=== PATIENT | female | born 1955 | race Caucasian/White ===

== ENCOUNTER → 2017-03-24 | Outpatient (CLI) | payer BC ==
[~2017-03-24] MED LIST: BUDESUS NAE; CETI10TA84 PO; CRAN1CAP15 PO; DEXL60CA4 PO; DEXT30TA7 PO; FAMO40TA6 PO; LACT10CA3 PO; LEVAAER2 INH; LORA-741 PO; MOME100A INH; MULT-190 PO; SNG10 PO; TRIA75TA53 PO
--- NOTE | 2017-03-24 15:12 | MAMMOGRAPHY REPORT ---
BILATERAL DIGITAL DIAGNOSTIC MAMMOGRAM TOMOSYNTHESIS WITH CAD AND TARGETED LEFT ULTRASOUND: 03/24/2017 CLINICAL HISTORY: New palpable soft mobile lump in the lower inner quadrant of the left breast. Also due for annual bilateral screening mammograms. TECHNIQUE: Bilateral breast tomosynthesis in addition to standard 2D mammography was performed. Curre nt study was also evaluated with a Computer Aided Detection (CAD) system. COMPARISON: Comparison is made to exams dated: 03/20/2016 ultrasound, 03/20/2016 mammogram, 03/13/2016 m ammogram, 03/08/2015 ultrasound, 03/08/2015 mammogram, and 05/11/2014 mammogram - [facility]. BREAST COMPOSITION: The tissue of both breasts is heterogeneously dense, which may obscure small mas ses. FINDINGS: A triangular skin palpable marker overlies the lower inner quadrant of the left breast, den oting the new lump pointed out by the patient. A linear scar marker overlies the upper outer quadrant of the left breast. No new suspicious mass, architectural distortion or cluster of microcalcificatio ns is seen bilaterally. There are diffuse bilateral benign-appearing microcalcifications. Targeted ultrasound was performed in the area of palpable lump pointed out by the patient (8:00 left breast, 6 cm from the nipple). There is a prominent superficial fat lobule in this location measurin g 2.6 x 0.8 x 1.9 cm. This could simply represent a prominent fat lobule or possibly a benign lipoma . There is no evidence of a suspicious solid mass on ultrasound. IMPRESSION: ACR BI-RADS CATEGORY 2: BENIGN, TARGETED ULTRASOUND ACR BI-RADS CATEGORY 2: BENIGN 1. There is no new suspicious mammographic abnormality in the area of palpable concern. On ultrasou nd, there is a prominent fat lobule versus possible benign lipoma in the 8:00 left breast, 6 cm from the nipple, in the area of soft mobile lump pointed out by the patient. The imaging findings are rachel ign, but continued clinical monitoring is recommended, as biopsy of a clinically suspicious mass shou ld not be precluded by negative imaging. 2. Otherwise, recommend routine mammography in one year. Approximately 10% of breast cancers are not detected with mammography. A negative mammographic report should not delay biopsy if a clinically suggestive mass is present. Malinda Jones M.D. ay/:03/24/2017 15:03:32 Equities Trader: Zoila Smallwood, [facility] letter sent: Normal /2 BI-RADS Code: ACR BI-RADS Category 2: Benign Ultrasound BI-RADS: ACR BI-RADS Category 2: Benign
== END | disposition home or self-care (01) ==
LOC: C.MAMM 10:28
PROVIDERS: ATTEND Obstetrics & Gynecology
DX: Z12.31 Encounter for screening mammogram for malignant neoplasm of breast (principal); N63 Unspecified lump in breast

== ENCOUNTER → 2017-08-28 | Outpatient (CLI) | payer BC ==
[2017-08-28 12:41] LABS: BASO % 0.2 %; BASO ABS # 0.01 K/uL (0-0.2); COMPLETE YES; EOS % 0.7 %; HEMATOCRIT 44.2 % (37-47); IG% 0.2 %; LYMPH % 21.8 %; LYMPH ABS # 1.22 K/uL (1.2-3.4); MEAN CELL VOLUME 92.5 fL (80-100); MEAN CORPUSCULAR HEMOGLOBIN 31.2 pg (25-34); MEAN CORPUSCULAR HGB CONC 33.7 g/dl (32-36); MEAN PLATELET VOLUME 10.1 fL (7.4-10.4); MONO % 11.1 %; PLATELET COUNT 383 K/uL (130-400); RED BLOOD COUNT 4.78 M/uL (4.2-5.4)
[2017-08-28 13:10] LABS: ALKALINE PHOSPHATASE 74 U/L (45-117); ALT/SGPT 24 U/L (12-78); AST/SGOT 12 U/L (15-37); BLOOD UREA NITROGEN 18 mg/dl (7-18); BUN/CREATININE RATIO 17.8 (10-20); CALCIUM 9.1 mg/dl (8.5-10.1); CARBON DIOXIDE 31 mmol/L (21-32); CHLORIDE 101 mmol/L (98-107); GLUCOSE 94 mg/dl (70-99); POTASSIUM 3.5 mmol/L (3.5-5.1); SODIUM 138 mmol/L (136-145)
[2017-08-28 13:22] LABS: CHOLESTEROL 219 mg/dl (0-200); CHOLESTEROL/HDL RATIO 3.5; HDL CHOLESTEROL 63 mg/dl; LDL CHOLESTEROL CALCULATED 128 mg/dl; TRIGLYCERIDES 141 mg/dl (0-150); VERY LOW DENSITY LIPOPROT CALC 28 mg/dl
== END | disposition home or self-care (01) ==
LOC: C.LABPBG 08:47
PROVIDERS: ATTEND Internal Medicine
DX: I10 Essential (primary) hypertension (principal); J45.909 Unspecified asthma, uncomplicated; E78.5 Hyperlipidemia, unspecified; J32.9 Chronic sinusitis, unspecified; K21.9 Gastro-esophageal reflux disease without esophagitis

== ENCOUNTER → 2018-04-14 | Outpatient (CLI) | payer BC | END | disposition home or self-care (01) | LOC: C.LABSPEC 09:52 | PROVIDERS: ATTEND Physician Assistant | DX: R39.9 Unspecified symptoms and signs involving the genitourinary system (principal) ==

== ENCOUNTER 2021-11-25 10:48 | Observation (INO) ==
[2021-11-25] MEDS ORDERED: OXYMETAZOLINE 0.05% 30 ML BTL ONE ×2 (10:52→15:47)
--- NOTE | 2021-11-25 12:28 | Emergency Department Note ---
History of Present Illness General Chief complaint: Nose Bleed (Minor) Stated complaint: NOSE BLEED Time Seen by Provider: 11/25/21 10:56 History of Present Illness This 65-year-old female presents to the ED, for evaluation of a nosebleed that developed this morning. Patient has a history of nosebleeds requiring cautery. She was last seen by Dr. Mcintyre 10 days ago and had a left posterior nosebleed cauterized in the OR. She did have some packing at that time. She states she has been using moisturizing gel, saline mist, and Bactroban ointment to keep the area moisturized. She was doing fine until this morning. Patient states she blew her nose around 8:30 AM and developed nosebleed. She could not control it at home. She now reports for further management. She is on Xarelto. She states she never had nosebleeds in her life until she started the Xarelto. She denies any trauma. No other complaints. Home Medications Medication Instructions Recorded Confirmed Type cetirizine 10 mg tablet (Zyrtec) 10 mg PO HS 01/20/19 11/25/21 History guaifenesin 600 mg tablet, 600 mg PO Q6H PRN 04/01/19 11/25/21 History extended release 12 hr (Mucinex) multivitamin (Multiple Vitamins) 1 tab PO DAILY 04/01/19 11/25/21 History esomeprazole magnesium 20 mg 40 mg PO BID cap 04/12/19 11/25/21 History capsule,delayed release (Nexium) clobetasol 0.05 % topical ointment 1 applic TOPICAL 3XWK #30 g 12/04/20 11/25/21 Rx levalbuterol tartrate 45 2 inh INHALATION Q4H PRN #15 gm 01/16/21 11/25/21 Rx mcg/actuation aerosol inhaler (Xopenex HFA) calcium carbonate 300 mg (750 mg) 300 mg PO BID PRN 02/07/21 11/25/21 History chewable tablet (Tums) cholecalciferol (vitamin D3) 50 50 mcg PO QAM 02/07/21 11/25/21 History mcg (2,000 unit) capsule famotidine 40 mg tablet 40 mg PO BID #180 tab 03/05/21 11/25/21 Rx potassium chloride 10 mEq 10 meq PO BID #180 tab 03/20/21 11/25/21 Rx tablet,extended release (Klor-Con) budesonide-formoterol HFA 160 2 puff INHALATION BID #1 inhaler 06/15/21 11/25/21 Rx mcg-4.5 mcg/actuation aerosol inhaler (Symbicort) inhaler,assist devices,access #1 ea 06/15/21 11/23/21 Rx montelukast 10 mg tablet 10 mg PO HS #90 tab 08/21/21 11/25/21 Rx diltiazem HCl 180 mg capsule,24 180 mg PO QAM 11/12/21 11/25/21 History hr,extended release ascorbic acid (vitamin C) 500 mg 500 mg PO DAILY 11/25/21 11/25/21 History tablet budesonide-formoterol HFA 160 2 puff INHALATION BID 11/25/21 11/25/21 History mcg-4.5 mcg/actuation aerosol inhaler hydroxyzine HCl 25 mg tablet 25 mg PO DAILY PRN 11/25/21 11/25/21 History lutein 25 mg-zeaxanthin 5 mg 1 cap PO DAILY 11/25/21 11/25/21 History capsule (Ocuvite Lutein) tiotropium bromide 18 mcg capsule 1 cap INHALATION DAILY 11/25/21 11/25/21 History with inhalation device (Spiriva with HandiHaler) triamterene 75 0.5 tab PO QAM 11/25/21 11/25/21 History mg-hydrochlorothiazide 50 mg tablet zinc 50 mg tablet 50 mg PO DAILY 11/25/21 11/25/21 History ferrous sulfate 325 mg (65 mg 325 mg PO QAM 30 Days #30 tab 11/26/21 Rx iron) tablet,delayed release Allergies Allergy/AdvReac Type Severity Reaction Status Date / Time Penicillins Allergy Mild Hives Verified 11/25/21 13:52 Cephalosporins AdvReac Intermediate Nausea Verified 11/25/21 13:52 Sulfa (Sulfonamide AdvReac Unknown Nausea Verified 11/25/21 13:52 Antibiotics) Past Med/Surg History Medical History Allergic rhinitis Anxiety Asthma Atrial fibrillation dx'd January 2021, following with Dr Prescott. no cardioversion. patient scheduled to have a LOOP recorder inserted 02/08/21 to be done at [facility]. BCC (basal cell carcinoma) Chronic anticoagulation Chronic GERD Chronic sinusitis Cleft palate hx and surgical repair Colon polyp GERD (gastroesophageal reflux disease) HTN (hypertension) Hyperlipidemia Hypokalemia Insomnia Lichen sclerosus et atrophicus Nasal bleeding was seen in ER [place] on 11/11 has packing in nose. no current bleeding Osteopenia after menopause Surgical History H/O esophagogastroduodenoscopy (10/05/10) Cough w/u. Mild chronic inflammation. No evidence of intestinal metaplasia. H/O sinus surgery H/O tubal ligation History of colonoscopy (01/19/16) Mucosal Schwann cell hamartoma (benign) History of diagnostic tests Cough w/u 2010. Esophageal manometry 11/15/10 was non-diagnostic. 24 hour pH testing 11/15/10 DeMeester score 34.3, remarkable reflux, total of 101 refluxes, 49 in upright position, 52 in supine. History of lumpectomy of left breast right breast History of surgical removal of skin lesion S/P reconstruction procedure Palatoplasty for Cleft palate Family History Father Diabetes Alzheimer disease Hypertension Heart disease Mother Allergic rhinitis Asthma Hearing loss Environmental allergies Family/Other Diabetes Heart disease Cancer Stroke Brother Colon cancer Grandfather (Paternal) Colon cancer Other Family history non-contributory No family history of bleeding disorder Denies family history of Ovarian cancer Prostate cancer Myocardial infarction Breast cancer Social History Smoking Status: Never smoker Second Hand Exposure: No; Hx Alcohol Use: No Hx Substance Use: No Preferred Language: Greenlandic Communication Ability: Effective Visual Impairment: No Limitations Hearing Ability: Normal Bicycle Repairman Required: No Beliefs That Will Affect Care: None marital status: Current Living Situation: Spouse current occupational status: retired Feels Safe at Home: Yes Childhood Exposure to Second-Hand Smoke: No Diet Comment: regular caffeine: Yes during the past year weight has: remained stable Dental Care, Regularly: Yes Physical Activity Frequency: Daily Physical Activity Frequency Comment: walk Seatbelt Use: always Sunscreen Use: No Assistive Devices: None Review of Systems A total of 10 systems reviewed and were otherwise negative Physical Exam Vital Signs Vital Signs - 24 hr 11/25/21 10:57 11/25/21 11:21 Pulse Rate 105 H Pulse Rate [Left Finger] 102 H Respiratory Rate 18 18 Blood Pressure 167/94 H Blood Pressure [Left Arm] 136/81 Blood Pressure Mean 118 Blood Pressure Mean [Left Arm] 99 Pulse Oximetry 97 95 Oxygen Delivery Method Room Air Room Air Sepsis Recent Fever Within 48 Hours No Sepsis New/Unexplained Change in Mental Status No Sepsis Action Taken by Nursing No Action Required General: Well-developed, well-nourished, elderly white female, in no acute distress. Sitting on the bed. Alert and oriented. Conversive. Currently has a nasal clip in place with continued bleeding. Skin: Warm dry with fair turgor. No rashes or lesions. No ecchymosis or erythema. HEENT: Normocephalic, atraumatic. Eyes PERRLA EOMI. Nares currently has bleeding from the left nostril. She did have some oozing from the right, but after clearing the area with gauze and suction, she had no bleeding occurring on the right. All of her bleeding is on the left. There is some oozing present along the posterior septum. Large clot is present. She does have blood draining on the posterior oropharynx. Uvula midline, oral mucosa moist. Hard palate is slightly misshapen due to previous cleft surgery. Heart RRR. No MGR. Lungs clear to auscultation bilaterally. No crackles rhonchi or wheezing. Good air movement. Course Administered Medications Discontinued Medications Ascorbic Acid (Ascorbic Acid 500 Mg Tab) 500 mg PO DAILY SAAD Stop: 12/26/21 08:59 Last Admin: 11/26/21 09:31 Dose: 500 mg Documented by: [id number] Cetirizine HCl (Cetirizine Hcl 10 Mg Tablet) 10 mg PO HS SAAD Stop: 12/25/21 20:59 Last Admin: 11/25/21 20:59 Dose: 10 mg Documented by: [id number] Diltiazem HCl (Diltiazem Er 180 Mg Capcr) 180 mg PO QAM SAAD Stop: 12/26/21 08:59 Last Admin: 11/26/21 09:31 Dose: 180 mg Documented by: [id number] Famotidine (Famotidine 40 Mg Tablet) 40 mg PO BID [facility] Stop: 12/25/21 20:59 Last Admin: 11/26/21 09:31 Dose: 40 mg Documented by: [id number] Admin: 11/25/21 20:59 Dose: 40 mg Documented by: [id number] Ferrous Sulfate (Ferrous Sulfate 325 Mg Tab) 325 mg PO QAM [facility] Stop: 12/26/21 08:59 Last Admin: 11/26/21 09:31 Dose: 325 mg Documented by: [id number] Fluticasone/Vilanterol (Fluticasone/Vilanterol 200/25mcg 14 Puffs/Inhaler) 1 puffs INH DAILY SAAD Stop: 12/26/21 08:59 Last Admin: 11/26/21 09:31 Dose: 1 puffs Documented by: [id number] Gelatin (Gelatin Sponge Sz 100) Confirm Administered Dose 1 ea .ROUTE .STK-MED ONE Stop: 11/25/21 15:17 Last Admin: 11/25/21 16:25 Dose: 1 ea Documented by: [id number] Sodium Chloride (Nss 1000ml) 1,000 mls @ 75 mls/hr IV .[id number] [facility] Stop: 12/25/21 19:29 Last Admin: 11/26/21 09:18 Dose: Not Given Documented by: [id number] Infusion: 11/26/21 09:18 Dose: 0 mls/hr Documented by: [id number] Admin: 11/25/21 20:56 Dose: 75 mls/hr Documented by: [id number] Miscellaneous ( Floseal Hemostatic Matrix 5ml) 5 ml TOP ONCE ONE Stop: 11/25/21 16:16 Last Admin: 11/25/21 16:32 Dose: 5 ml Documented by: [id number] Miscellaneous (Hemaderm Ent Applicator Kit) 1 ea TOP ONCE ONE Stop: 11/25/21 16:24 Last Admin: 11/25/21 16:25 Dose: 1 ea Documented by: [id number] Miscellaneous (Surgicel Fibrillar Hemostat 1 X 2in) 1 ea TOP ONCE ONE Stop: 11/25/21 16:24 Last Admin: 11/25/21 16:33 Dose: 1 ea Documented by: [id number] Montelukast Sodium (Montelukast Sodium 10 Mg Tablet) 10 mg PO HS [facility] Stop: 12/25/21 20:59 Last Admin: 11/25/21 21:00 Dose: 10 mg Documented by: [id number] Multivitamins (Multivitamin Tab) 1 tab PO DAILY [facility]; Protocol Stop: 12/26/21 08:59 Last Admin: 11/26/21 09:31 Dose: Not Given Documented by: [id number] Multivitamins/Minerals (Cerovite Adv Formula Tab) 1 tab PO DAILY [facility] Stop: 12/26/21 08:59 Last Admin: 11/26/21 09:30 Dose: 1 tab Documented by: [id number] Mupirocin (Mupirocin 2% Oint 22 Gm Tube) Confirm Administered Dose 66 appln .ROUTE .STK-MED ONE Stop: 11/25/21 16:31 Last Admin: 11/25/21 16:33 Dose: 66 appln Documented by: [id number] Oxymetazoline HCl (Oxymetazoline 0.05% 30 Ml Btl) Confirm Administered Dose 150 sprays .ROUTE .STK-MED ONE Stop: 11/25/21 10:53 Last Admin: 11/25/21 10:58 Dose: 150 sprays Documented by: [id number] Oxymetazoline HCl (Oxymetazoline 0.05% 30 Ml Btl) Confirm Administered Dose 150 sprays .ROUTE .STK-MED ONE Stop: 11/25/21 15:48 Last Admin: 11/25/21 16:25 Dose: 150 sprays Documented by: [id number] Pantoprazole Sodium (Pantoprazole 40 Mg Tab) 40 mg PO BID [facility]; Protocol Stop: 12/25/21 20:59 Last Admin: 11/26/21 09:30 Dose: 40 mg Documented by: [id number] Admin: 11/25/21 21:05 Dose: 40 mg Documented by: [id number] Potassium Chloride (Potassium Chloride 10 Meq Tabcr) 10 meq PO BID SAAD Stop: 12/25/21 20:59 Last Admin: 11/26/21 09:28 Dose: 10 meq Documented by: [id number] Admin: 11/25/21 21:05 Dose: 10 meq Documented by: [id number] Triamterene/Hydrochlorothiazide (Triamterene/Hctz 37.5/25mg Tab) 0.5 tab PO QAM [facility] Stop: 12/26/21 08:59 Last Admin: 11/26/21 09:29 Dose: 0.5 tab Documented by: [id number] Umeclidinium [place] (Umeclidinium [place] 62.5mcg/Blister 7 Puffs/Inhaler) 1 puffs INH DAILY SAAD; Protocol Stop: 12/26/21 08:59 Last Admin: 11/26/21 09:42 Dose: Not Given Documented by: [id number] Vitamin D (Cholecalciferol 1,000 Units 25 Mcg Tab) 2,000 units PO QAM SAAD Stop: 12/26/21 08:59 Last Admin: 11/26/21 09:31 Dose: 2,000 units Documented by: [id number] Medical Decision Making Differential Diagnosis Anterior epistaxis, posterior epistaxis, nasal fracture Medical Records Attestation: I reviewed the patient's medical records. Home Medications Current Medication List: was personally reviewed by me Laboratory Data Attestation: I reviewed the patient's lab results. CBC obtained today shows an H&H of 14.0 and 40.9. Covid test is negative. Result diagrams: 11/26/21 07:45 Lab Results 11/25/21 11/25/21 Range/Units 12:48 12:48 WBC 12.15 H (4.8-10.8) K/uL RBC 4.52 (4.2-5.4) M/uL Hgb 14.0 (12.0-16.0) g/dL Hct 40.9 (37-47) % MCV 90.5 (80-100) fL MCH 31.0 (25-34) pg MCHC 34.2 (32-36) g/dL RDW Std Deviation 42.6 (36.4-46.3) fL RDW Coeff of Niharika 12.8 (11.5-14.5) % Plt Count 441 H (130-400) K/uL MPV 9.1 (7.4-10.4) fL Immature Gran % (Auto) 0.3 % Neut % (Auto) 81.4 % Lymph % (Auto) 11.2 % [place] % (Auto) 6.3 % Eos % (Auto) 0.7 % Baso % (Auto) 0.1 % Neut # (Auto) 9.89 H (1.4-6.5) K/uL Lymph # (Auto) 1.36 (1.2-3.4) K/uL [place] # (Auto) 0.77 H (0.11-0.59) K/uL Eos # (Auto) 0.08 (0-0.5) K/uL Baso # (Auto) 0.01 (0-0.2) K/uL Immature Gran # (Auto) 0.04 H (0.00-0.02) K/uL SARS-CoV-2, RNA, NAAT NEGATIVE (NEGATIVE) Blood Pressure Blood Pressure Findings: Elevated blood pressure Blood Pressure Disposition: elevated BP felt to be situational MDM Narrative Patient was evaluated in room C10. Conservative care measures were discussed. Afrin protocol with nasal clip was attempted initially. Bleeding did not stop. A second round was attempted after suction of the intranasal clot. Nasal clips were again applied. This did not stop her bleeding. Patient did have several episodes of gagging, secondary to a posterior clot that bridged into the oropharynx. This was removed with suction. I did speak with Dr. Mcintyre regarding this patient. He was out of town and unavailable. He recommended contacting the on-call ENT. I did speak with Dr. Queen, who came to the ED to evaluate the patient. He recommended taking the patient to the OR for cauterization under anesthesia. Please see his dictation for final management. Patient did have an apple juice around 8:30 AM. She did not have breakfast. She remained n.p.o. while in the ED. Patient remained stable while in the ED. Patient was seen in conjunction with Dr. Winters, who also evaluated the patient, and concurred with today's diagnosis and treatment plan. Impression & Plan Epistaxis To the OR for nasal cautery Discharge Plan Visit Data Chief Complaint: Nose Bleed (Minor) Stated Complaint: NOSE BLEED ED Provider: López Winters ED Midlevel Provider: Salazar Cowart Discharge Problem: Epistaxis Patient Disposition: Admitted As Inpatient Condition: Good Discharge Instructions Interventions: ED Discharge Assessment Last Done: 11/25/21 15:17
--- NOTE | 2021-11-25 12:30 | History & Physical Report ---
Date of Service November 25, 2021 Assessment & Plan (1) Epistaxis: Plan: This is a posterior nasal bleeding that is currently not controlled. 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 Additionally with the past cauterizations she has friable tissue. Patient is also anticoagulated on Xarelto for her atrial fibrillation. 1. IV Fluid Access 2. CBC Type and Cross-Match 3. CONTROL of EPISTIAXIS - This will require endoscopic nasal airway and nasopharyngeal evaluation and control of epistaxis. Admission and Anticipated Discharge Date Admission Date: November 25, 2021 Anticipated date of discharge: 11/26/21 History of Present Illness Chief Complaint: Recurrent Epistaxis Primary Care Provider: Solomon Salomon MD Patient had taken her usual medications this AM with about 4 oz. of Apple Juice and then in the course of the morning blew her nose and it started bleeding - with blood coming from both nostrils, but more significantly down the back of her throat. When th bleeding FAILED to STOP, the patient came to the [facility] for triage and treatment. The patient as given first the AFRIN protocol and that did NOT STOP the Epistaxis. Fibrullar hemostatic agent packing and nasal "clamping" did not control the bleeding. Otolaryngology - Head & Neck surgery evaluation and management then requested. The patient actually had a episode of epistaxis 2 weeks ago on November 11, 2021. She came to the [facility] then and was triaged and had an epistat balloon packing to control her bleeding, which appeared to be a posterior nasal bleed. She was discharged with the epistat balloon and cefdinir antibiotic therapy. She then saw a local ENT Dr. Mcintyre in follow-up after emergency room treatment. He remove the epistatic balloon and took her to surgery on November 15, 2021 for endoscopic procedure with control of epistaxis and cauterization. She was discharged from the surgery center November 15, 2021 with the nasal packing in place and to continue with her Xarelto and cefdinir antibiotic therapy. The patient was scheduled for follow-up on December 06, [address] MCINTYRE's office. An important past medical history is history of cleft palate as an infant and she has had 11 reconstructive surgeries - on her palate and nasal airway, since infancy until age 9. Allergies Allergy/AdvReac Type Severity Reaction Status Date / Time Penicillins Allergy Mild Hives Verified 11/23/21 11:01 Cephalosporins AdvReac Intermediate Nausea Verified 11/23/21 11:01 Sulfa (Sulfonamide AdvReac Unknown Nausea Verified 11/23/21 11:01 Antibiotics) Home Medications Medication Instructions Recorded Confirmed Type budesonide 32 mcg/actuation nasal 2 spray INTRANASAL DAILY 01/20/19 11/23/21 History spray (Rhinocort Allergy) cetirizine 10 mg tablet (Zyrtec) 10 mg PO HS 01/20/19 11/23/21 History guaifenesin 600 mg tablet, 600 mg PO Q6H PRN 04/01/19 11/23/21 History extended release 12 hr (Mucinex) multivitamin (Multiple Vitamins) 1 tab PO DAILY 04/01/19 11/23/21 History esomeprazole magnesium 20 mg 40 mg PO BID cap 04/12/19 11/23/21 History capsule,delayed release (Nexium) clobetasol 0.05 % topical ointment 1 applic TOPICAL 3XWK #30 g 12/04/20 11/23/21 Rx levalbuterol tartrate 45 2 inh INHALATION Q4H PRN #15 gm 01/16/21 11/23/21 Rx mcg/actuation aerosol inhaler (Xopenex HFA) calcium carbonate 300 mg (750 mg) 300 mg PO BID PRN 02/07/21 11/23/21 History chewable tablet (Tums) cholecalciferol (vitamin D3) 50 50 mcg PO QAM 02/07/21 11/23/21 History mcg (2,000 unit) capsule famotidine 40 mg tablet 40 mg PO BID #180 tab 03/05/21 11/23/21 Rx potassium chloride 10 mEq 10 meq PO BID #180 tab 03/20/21 11/23/21 Rx tablet,extended release (Klor-Con) mupirocin 2 % topical ointment 1 applic TOPICAL BID #22 g 04/23/21 11/23/21 Rx budesonide-formoterol HFA 160 2 puff INHALATION BID #1 inhaler 06/15/21 11/23/21 Rx mcg-4.5 mcg/actuation aerosol inhaler (Symbicort) inhaler,assist devices,access #1 ea 06/15/21 11/23/21 Rx ipratropium bromide 21 mcg (0.03 2 spray INTRANASAL BID ml 07/16/21 11/23/21 History %) nasal spray vit A 300 mcg-C 200 mg-E 27 1 tab PO QAM 07/16/21 11/23/21 History mg-lutein 2 mg and minerals tablet (Ocuvite with Lutein) triamterene 75 See Rx Instructions .ROUTE 07/31/21 11/23/21 Rx mg-hydrochlorothiazide 50 mg tablet .COMPLEX #45 tablet montelukast 10 mg tablet 10 mg PO HS #90 tab 08/21/21 11/23/21 Rx zinc 50 mg PO QAM 09/17/21 11/23/21 History hydroxyzine HCl 25 mg tablet See Rx Instructions .ROUTE 11/09/21 11/23/21 Rx .COMPLEX #30 tab cefdinir 300 mg capsule 300 mg PO BID #20 cap 11/12/21 11/23/21 Rx diltiazem HCl 180 mg capsule,24 180 mg PO QAM 11/12/21 11/23/21 History hr,extended release rivaroxaban 20 mg tablet (Xarelto) 20 mg PO QPM 11/12/21 11/23/21 History Past Med/Surg History Medical History Allergic rhinitis Anxiety Asthma Atrial fibrillation dx'd January 2021, following with Dr Prescott. no cardioversion. patient scheduled to have a LOOP recorder inserted 02/08/21 to be done at [facility]. BCC (basal cell carcinoma) Chronic anticoagulation Chronic GERD Chronic sinusitis Cleft palate hx and surgical repair Colon polyp GERD (gastroesophageal reflux disease) HTN (hypertension) Hyperlipidemia Hypokalemia Insomnia Lichen sclerosus et atrophicus Nasal bleeding was seen in ER [place] on 11/11 has packing in nose. no current bleeding Osteopenia after menopause Surgical History H/O esophagogastroduodenoscopy (10/05/10) Cough w/u. Mild chronic inflammation. No evidence of intestinal metaplasia. H/O sinus surgery H/O tubal ligation History of colonoscopy (01/19/16) Mucosal Schwann cell hamartoma (benign) History of diagnostic tests Cough w/u 2010. Esophageal manometry 11/15/10 was non-diagnostic. 24 hour pH testing 11/15/10 DeMeester score 34.3, remarkable reflux, total of 101 refluxes, 49 in upright position, 52 in supine. History of lumpectomy of left breast right breast History of surgical removal of skin lesion S/P reconstruction procedure Palatoplasty for Cleft palate Family History Father Diabetes Alzheimer disease Hypertension Heart disease Mother Allergic rhinitis Asthma Hearing loss Environmental allergies Family/Other Diabetes Heart disease Cancer Stroke Brother Colon cancer Grandfather (Paternal) Colon cancer Other Family history non-contributory No family history of bleeding disorder Denies family history of Ovarian cancer Prostate cancer Myocardial infarction Breast cancer Social History Smoking Status: Never smoker Second Hand Exposure: No; Hx Alcohol Use: No Hx Substance Use: No Preferred Language: Ugandan Communication Ability: Effective Visual Impairment: No Limitations Hearing Ability: Normal Analytics Developer Required: No Beliefs That Will Affect Care: None marital status: Current Living Situation: Spouse current occupational status: retired Feels Safe at Home: Yes Childhood Exposure to Second-Hand Smoke: No Diet Comment: regular caffeine: Yes during the past year weight has: remained stable Dental Care, Regularly: Yes Physical Activity Frequency: Daily Physical Activity Frequency Comment: walk Seatbelt Use: always Sunscreen Use: No Assistive Devices: Denture - Upper and Glasses Review of Systems Constitutional: no fever, no sweats, no weakness and no weight loss Started Xeralto 3 months ago for A-fib. Eyes: no diplopia, no eye pain, no tunnel vision and no problem reported Ear, Nose, Mouth, Throat: + nasal congestion, + nasal discharge (Blood from BOTH nostrils and POST-NASAL DRIP), + post nasal drip (fresh bleeding), + nasal obstruction, + epistaxis and + dental caps; no ear discharge, no nasal trauma, no facial pain and no sinus pain/pressure Respiratory: no cough, no hemoptysis and no wheezing Cardiovascular: no radiating jaw, neck or arm pain Gastrointestinal: + heartburn; no abdominal pain, no nausea, no vomiting, no hematemesis, no pain with swallowing and no dysphagia Genitourinary: no urinary frequency, no urinary incontinence, no hematuria and no pelvic pain Musculoskeletal: no back pain, no neck pain, no swelling and no limited range of motion Integumentary: no rash, no sores, no wounds and no unusual bruising Neurologic: no gait abnormality, no paralysis, no numbness, no paresthesia, no radiating pain and no syncope Psychiatric: + anxiety; no suicidal ideation and no paranoia Endocrine: no polydipsia, no polyphagia and no polyuria Hematologic / Lymphatic: + coagulopathy (XERALTO anti-coagulation therapy for A-fib); no lymphadenopathy Allergy / Immunological: + seasonal rhinorrhea and + cough; no tongue swelling Physical Exam Physical Exam: Emergency Dept. Consultation and Hospital Admission. Constitutional: Alert and oriented. Afebrile. ENMT: Ears: no EAC abnormality and no TM abnormality Nose: + turbinate abnormality (Past CLEFT PALATE / Nasal Abnormality), + septum abnormality (with deformed sepatl wall from past CLEFT Palate / Repars.) and + epistaxis (Bilateral and POSTERIOR. ) Mouth: + dentition abnormality (past CLEFT Palate repairwith missing anterior maxillary dentition / alveolu), + dental bridge and + dental restorations; no mouth trauma, motion of mouth not restricted and no thickened frenulum Throat: uvula midline (shortened and reconstructed due to past CLEFT Palate) and + postnasal drainage (blood) Neck: trachea midline, no thyromegaly normal visual inspection and trachea midline; no neck crepitus Respiratory: normal respiratory effort, lungs clear to auscultation normal respiratory effort; no respiratory distress, no labored breathing and no stridor Auscultation: lungs clear to auscultation bilaterally; no rales and no wheezes Cardiovascular: RRR, no murmur, no edema (HISTORY of ATRIAL FIBRILLATION ) Rate/Rhythm: regular rate (NO A-fib on tracing this AM) Extremities: no pedal edema and no edema Chest (Breasts): normal inspection/palpation of breasts Gastrointestinal (Abdomen): normal bowel sounds, soft, nontender, no hepatosplenomegaly Musculoskeletal: no cyanosis or clubbing, extremities motor strength 5/5 Skin: no rashes, warm and dry Neurologic: PERRL, EOMI, accommodation nl, no face palsy, no dysarthria Cranial Nerves: PERRL, tongue midline, normal gag reflex, able to elevate shoulders bilaterally and no nystagmus Psychiatric: A+Ox3, euthymic affect Results & Data Results & Data ([facility]) Vital Signs (Past 12 Hours) Vital Signs Pulse Pulse Resp BP BP Pulse Ox 11/25/21 11:21 102 H 18 136/81 95 11/25/21 10:57 105 H 18 167/94 H 97 Code Status & VTE Plan VTE Prophylaxis Plan Reason for no VTE drug order: Treatment not indicated (ACTIVE BLeeding AND on XERALTO)
[2021-11-25 13:01] LABS: Basophils # (auto) 0.01 K/uL (0-0.2); Basophils % (auto) 0.1 %; Eosinophils # (auto) 0.08 K/uL (0-0.5); Eosinophils % (auto) 0.7 %; Hematocrit (blood only) 40.9 % (37-47); Immature Granulocytes # (auto) 0.04 K/uL (0.00-0.02); Immature Granulocytes % (auto) 0.3 %; Lymphocytes # (auto) 1.36 K/uL (1.2-3.4); Lymphocytes % (auto) 11.2 %; Mean Corpuscular Hgb Conc 34.2 g/dL (32-36); Mean Corpuscular Volume 90.5 fL (80-100); Mean Platelet Volume 9.1 fL (7.4-10.4); Monocytes # (auto) 0.77 K/uL (0.11-0.59); Monocytes % (auto) 6.3 %; Neutrophils # (auto) 9.89 K/uL (1.4-6.5); Neutrophils % (auto) 81.4 %; Platelet Count 441 K/uL (130-400); RDW Coefficient of Variation 12.8 % (11.5-14.5); RDW Standard Deviation 42.6 fL (36.4-46.3); Red Blood Count 4.52 M/uL (4.2-5.4); White Blood Count 12.15 K/uL (4.8-10.8)
--- NOTE | 2021-11-25 13:30 | Emergency Department Note ---
ED Visit Note The patient was seen and examined with Salazar Cowart PA-C. I agree with the history, physical and findings. Please see the note for disposition and details. Patient has a significant history of epistaxis and nasal cautery. Recently treated by ENT [address] Mcintyre was consulted but he is out of town. I did evaluate the patient as she was gagging from a clot that was forming in the posterior nares. I did remove this via suction. There was a small area of bleeding noted from a superficial vessel in the posterior aspect of the anterior septum. I did apply Afrin and covered the area with fibrillar. Pressure was applied. This helped slow the bleeding significantly. On-call ENT, Dr. Queen was contacted. He evaluated the patient in the ER. Given her history of the cleft palate and multiple cauteries in the past felt that the patient would be best served by treatment in the OR. Patient was taken to the OR for definitive management. .
[2021-11-25] MEDS ORDERED: SUCCINYLCHOLINE CHLORIDE 20 MG/ML 10 ML VIAL IV ONE (15:01)
[2021-11-25] MEDS ORDERED: PROPOFOL IV EMULSION 10 MG/ML 20 ML VIAL IV ONE (15:01)
[2021-11-25] MEDS ORDERED: fentaNYL citrate 100 MCG/2 ML VIAL ONE (15:02)
[2021-11-25] MEDS ORDERED: MIDAZOLAM HCL 1 MG/ML 2ML VIAL ONE (15:02)
[2021-11-25] MEDS ORDERED: GELATIN SPONGE SZ 100 ONE (15:16)
--- NOTE | 2021-11-25 15:22 | Anesthesiology Consultation ---
Date of Service November 25, 2021 Assessment & Plan ASA [id number] Proposed Anesthesia Anesthesia Type: General Risk / Benefits Reviewed With: PT / POA / Parent / Guardian, Accepts Plan and Informed Consent Obtained History Surgery Operation Date: 11/25/21 13:35 Proposed Procedures p Endoscopic Sinus Surgery - Amrita Mcintyre MD Height/Weight Height: 5 ft 3 in Weight: 57.8 kg Allergies Allergy/AdvReac Type Severity Reaction Status Date / Time Penicillins Allergy Mild Hives Verified 11/25/21 13:52 Cephalosporins AdvReac Intermediate Nausea Verified 11/25/21 13:52 Sulfa (Sulfonamide AdvReac Unknown Nausea Verified 11/25/21 13:52 Antibiotics) Medications Home Medications Medication Instructions Recorded Confirmed Last Taken cetirizine 10 mg tablet (Zyrtec) 10 mg PO HS 01/20/19 11/25/21 11/24/21 guaifenesin 600 mg tablet, 600 mg PO Q6H PRN 04/01/19 11/25/21 11/24/21 extended release 12 hr (Mucinex) multivitamin (Multiple Vitamins) 1 tab PO DAILY 04/01/19 11/25/21 11/24/21 esomeprazole magnesium 20 mg 40 mg PO BID cap 04/12/19 11/25/21 11/24/21 capsule,delayed release (Nexium) clobetasol 0.05 % topical ointment 1 applic TOPICAL 3XWK #30 g 12/04/20 11/25/21 11/24/21 levalbuterol tartrate 45 2 inh INHALATION Q4H PRN #15 gm 01/16/21 11/25/21 11/24/21 mcg/actuation aerosol inhaler (Xopenex HFA) calcium carbonate 300 mg (750 mg) 300 mg PO BID PRN 02/07/21 11/25/21 11/24/21 chewable tablet (Tums) cholecalciferol (vitamin D3) 50 50 mcg PO QAM 02/07/21 11/25/21 11/24/21 mcg (2,000 unit) capsule famotidine 40 mg tablet 40 mg PO BID #180 tab 03/05/21 11/25/21 11/24/21 potassium chloride 10 mEq 10 meq PO BID #180 tab 03/20/21 11/25/21 11/24/21 tablet,extended release (Klor-Con) budesonide-formoterol HFA 160 2 puff INHALATION BID #1 inhaler 06/15/21 11/25/21 11/24/21 mcg-4.5 mcg/actuation aerosol inhaler (Symbicort) inhaler,assist devices,access #1 ea 06/15/21 11/23/21 11/24/21 ipratropium bromide 21 mcg (0.03 2 spray INTRANASAL BID ml 07/16/21 11/25/21 11/24/21 %) nasal spray montelukast 10 mg tablet 10 mg PO HS #90 tab 08/21/21 11/25/21 11/24/21 diltiazem HCl 180 mg capsule,24 180 mg PO QAM 11/12/21 11/25/21 11/25/21 hr,extended release rivaroxaban 20 mg tablet (Xarelto) 20 mg PO QPM 11/12/21 11/25/21 11/24/21 ascorbic acid (vitamin C) 500 mg 500 mg PO DAILY 11/25/21 11/25/21 11/24/21 tablet budesonide-formoterol HFA 160 2 puff INHALATION BID 11/25/21 11/25/21 Unknown mcg-4.5 mcg/actuation aerosol inhaler hydroxyzine HCl 25 mg tablet 25 mg PO DAILY PRN 11/25/21 11/25/21 Unknown lutein 25 mg-zeaxanthin 5 mg 1 cap PO DAILY 11/25/21 11/25/21 11/24/21 capsule (Ocuvite Lutein) tiotropium bromide 18 mcg capsule 1 cap INHALATION DAILY 11/25/21 11/25/21 11/24/21 with inhalation device (Spiriva with HandiHaler) triamterene 75 0.5 tab PO QAM 11/25/21 11/25/21 11/24/21 mg-hydrochlorothiazide 50 mg tablet zinc 50 mg tablet 50 mg PO DAILY 11/25/21 11/25/21 11/24/21 NPO Date Last Intake of Fluids: 11/25/21 Time Last Intake of Fluids: 15:21 Date Last Intake of Solids: 11/25/21 Time Last Intake of Solids: 00:00 Past Medical History Medical History Allergic rhinitis Anxiety Asthma Atrial fibrillation dx'd January 2021, following with Dr Prescott. no cardioversion. patient scheduled to have a LOOP recorder inserted 02/08/[address] [facility]. BCC (basal cell carcinoma) Chronic anticoagulation Chronic GERD Chronic sinusitis Cleft palate hx and surgical repair Colon polyp GERD (gastroesophageal reflux disease) HTN (hypertension) Hyperlipidemia Hypokalemia Insomnia Lichen sclerosus et atrophicus Nasal bleeding was seen in ER [place] on 11/11 has packing in nose. no current bleeding Osteopenia after menopause Exercise / Class Metabolic Activity II 4-5 Yardwork/Stairs/Walk up hill Past Family History Family History Father Diabetes Alzheimer disease Hypertension Heart disease Mother Allergic rhinitis Asthma Hearing loss Environmental allergies Family/Other Diabetes Heart disease Cancer Stroke Brother Colon cancer Grandfather (Paternal) Colon cancer Other Family history non-contributory No family history of bleeding disorder Denies family history of Ovarian cancer Prostate cancer Myocardial infarction Breast cancer Past Surgical History Surgical History H/O esophagogastroduodenoscopy (10/05/10) Cough w/u. Mild chronic inflammation. No evidence of intestinal metaplasia. H/O sinus surgery H/O tubal ligation History of colonoscopy (01/19/16) Mucosal Schwann cell hamartoma (benign) History of diagnostic tests Cough w/u 2010. Esophageal manometry 11/15/10 was non-diagnostic. 24 hour pH testing 11/15/10 DeMeester score 34.3, remarkable reflux, total of 101 refluxes, 49 in upright position, 52 in supine. History of lumpectomy of left breast right breast History of surgical removal of skin lesion S/P reconstruction procedure Palatoplasty for Cleft palate Past Anesthesia History No Hx of Anesthesia Complications and No Family Hx of Anesthesia Complications History of PONV No Hx of PONV and No Hx of Motion Sickness Social History Smoking Status: Never smoker Hx Alcohol Use: No Alcohol type: wine alcohol intake frequency: holidays/special occasions only Hx Substance Use: No substance use type: does not use Review of Systems denies fever/cough/ colds/ chest pain/ SOB/ KAYLA denies KAYLA Physical Exam Vital Signs Last Vital Signs Pulse 110 H 11/25/21 15:17 Resp 20 11/25/21 15:17 BP 166/106 H 11/25/21 15:17 Pulse Ox 96 11/25/21 15:17 ENMT Mouth: + dentures; no TMJ abnormality and no dentition abnormality Thyromental Distance: > or= 3.5 Finger Breadths Mallampati Class: II Neck neck extension not limited Respiratory normal respiratory effort; no respiratory distress Auscultation: lungs clear to auscultation bilaterally Cardiovascular Rate/Rhythm: regular rate and regular rhythm Neurologic moves all extremities Psychiatric Orientation: alert and oriented x 3 Testing Laboratory Results 11/25/21 12:48
[2021-11-25] MEDS ORDERED: DEXAMETHASONE SOD INJ 4 MG/ML VIAL ONE (15:46)
[2021-11-25] MEDS ORDERED: ONDANSETRON INJ 2 MG/ML 2 ML VIAL ONE (15:46)
[2021-11-25] MEDS ORDERED: FLOSEAL HEMOSTATIC MATRIX 5ML TOP ONE (16:15)
[2021-11-25] MEDS ORDERED: SURGICEL FIBRILLAR HEMOSTAT 1 X 2IN TOP ONE (16:23)
[2021-11-25] MEDS ORDERED: HEMADERM ENT APPLICATOR KIT TOP ONE (16:23)
[2021-11-25] MEDS ORDERED: MUPIROCIN 2% OINT 22 GM TUBE ONE (16:30)
--- NOTE | 2021-11-25 17:12 | Post Operative Brief Note ---
Immediate Post Op Note v1 Date of Surgery November 25, 2021 Pre & Post Diagnosis Operation Date: 11/25/21 13:35 Pre-Op Diagnosis: epistaxis Post-Op Diagnosis: epistaxis I identified the patient and participated in the time-out.: Yes Procedure Operation Date: 11/25/21 13:35 Actual Procedures p Endoscopic Sinus Surgery(Not Applicable) - Amrita Mcintyre MD Surgeon Ze Queen MD, FACS Grey Stock Recorder NONE. Estimated Blood Loss 90 Findings Consistent with Post-Op Diagnosis 1. Past Cleft Lip and Palate repairs. 2. Past LEFT Endoscopic Sinus Surgery of the ethmoid and maxillary sinuses. 3. LEFT Arterial bleeding from the mid- septal wall. 4. RIGHT Inferior Turbinate bleeding. Fluids 800 ml of Lacted Ringer's solution. Specimens NONE. Anesthesia Type General Complications none Disposition Accompanied Patient To Recovery: Yes Disposition: PCU
--- NOTE | 2021-11-25 17:53 | Anesthesiology Progress Note ---
Date of Service November 25, 2021 Anesthesia Post Procedure Vital Signs Vital Signs: Pulse Pulse Resp BP BP Pulse Ox 11/25/21 15:17 110 H 20 166/106 H 96 11/25/21 13:00 99 H 20 159/110 H 96 11/25/21 11:21 102 H 18 136/81 95 11/25/21 10:57 105 H 18 167/94 H 97 Transfer of Care Handoff Completed per policy Notes Mental Status: alert / awake / arousable and participated in evaluation Patient Amnestic to Procedure: Yes Nausea / Vomiting: adequately controlled Pain: adequately controlled Airway Patency, RR, SpO2: stable & adequate BP & HR: stable & adequate Hydration State: stable & adequate Anesthetic Complications: no major complications apparent and Pt Satisfied with anesthetic care
[2021-11-25] MEDS ORDERED: guaiFENesin 600 MG TABCR PO PRN (18:40)
[2021-11-25] MEDS ORDERED: LEVALBUTEROL TARTRATE 15 GM HFA.AER.AD INH PRN (18:40)
[2021-11-25] MEDS ORDERED: CALCIUM CARBONATE 500 MG CHEWABLE TAB PO PRN (19:30)
[2021-11-25] MEDS ORDERED: ONDANSETRON INJ 2 MG/ML 2 ML VIAL IV PRN (20:00)
[2021-11-25] MEDS: SODIUM CHLORIDE 0.9% 1000ML 1,000 ML IV SCH (20:56)
[2021-11-25] MEDS: FAMOTIDINE 40 MG TABLET PO SCH (20:59)
[2021-11-25] MEDS ORDERED: CETIRIZINE HCL 10 MG TABLET PO SCH (21:00)
[2021-11-25] MEDS ORDERED: MONTELUKAST SODIUM 10 MG TABLET PO SCH (21:00)
[2021-11-25] MEDS: POTASSIUM CHLORIDE 10 MEQ TABCR PO SCH (21:05)
[2021-11-25] MEDS: PANTOprazole 40 MG TAB PO SCH (21:05)
[2021-11-26 08:07] LABS: Hematocrit (blood only) 34.2 % (37-47); Hemoglobin 11.8 g/dL (12.0-16.0); Mean Corpuscular Hgb Conc 34.5 g/dL (32-36); Mean Corpuscular Volume 89.8 fL (80-100); Platelet Count 440 K/uL (130-400); RDW Coefficient of Variation 13.1 % (11.5-14.5); RDW Standard Deviation 42.7 fL (36.4-46.3); Red Blood Count 3.81 M/uL (4.2-5.4); White Blood Count 11.56 K/uL (4.8-10.8)
--- NOTE | 2021-11-26 08:26 | Ears,Nose,Throat Progress Note ---
Date of Service November 26, 2021 Assessment & Plan (1) Epistaxis: Plan: Bleeding controlled. Packing in place. Will plan for discharge today. Present on Admission?: Yes Plan: 1. Discharge to home. 2. Resume usual medications except for Xeralto. 3. Add Ferrous sulfate once daily. 4. Follow up in Clinic on for LEFT Packing removal. Admission and Anticipated Discharge Date Admission Date: November 25, 2021 Anticipated date of discharge: 11/26/21 Subjective Patient doing well. NO problems over night. NO bleeding. Physical Exam Constitutional: WD/WN, vitals as above ENMT: Nose: no nasal discharge, no epistaxis and no facial edema Throat: uvula midline; no uvular edema and no postnasal drainage Nasal packings are in place. RIGHT packing is dissolving as expected. RIGHT airway open. LEFT Nasal packing in place - NO ooze. NO bleeding. Results & Data ([facility]) Vital Signs (Past 12 Hours) Vital Signs Temp Pulse Pulse Resp BP BP Pulse Ox 11/26/21 08:00 37 C 84 14 134/82 95 11/26/21 02:35 36.7 C 101 H 16 142/80 H 94 11/25/21 22:35 36.6 C 110 H 18 152/93 H 94 11/25/21 21:39 36.9 C 95 H 18 146/78 H 96 11/25/21 20:37 36.9 C 95 H 18 146/79 H 96 Laboratory Results Hgb = 11.8 Hct = 34.3%
[2021-11-26] MEDS ORDERED: MULTIVITAMIN TAB PO SCH (09:00)
[2021-11-26] MEDS ORDERED: TRIAMTERENE/HCTZ 37.5/25MG TAB PO SCH (09:00)
[2021-11-26] MEDS ORDERED: dilTIAZem ER 180 MG CAPCR PO SCH (09:00)
[2021-11-26] MEDS ORDERED: ASCORBIC ACID 500 MG TAB PO SCH (09:00)
[2021-11-26] MEDS ORDERED: FERROUS SULFATE 325 MG TAB PO SCH (09:00)
[2021-11-26] MEDS ORDERED: CHOLECALCIFEROL 1,000 UNITS 25 MCG TAB PO SCH (09:00)
[2021-11-26] MEDS ORDERED: CEROVITE ADV FORMULA TAB PO SCH (09:00)
[2021-11-26] MEDS ORDERED: FLUTICASONE/VILANTEROL 200/25MCG 14 PUFFS/INHALER INH SCH (09:00)
[2021-11-26] MEDS: SODIUM CHLORIDE 0.9% 1000ML 1,000 ML IV SCH (09:18)
[2021-11-26] MEDS: POTASSIUM CHLORIDE 10 MEQ TABCR PO SCH (09:28)
[2021-11-26] MEDS: PANTOprazole 40 MG TAB PO SCH (09:30)
[2021-11-26] MEDS: UMECLIDINIUM BROMIDE 62.5MCG/BLISTER 7 PUFFS/INHALER INH SCH ×2 (09:31→09:42)
[2021-11-26] MEDS: FAMOTIDINE 40 MG TABLET PO SCH (09:31)
--- NOTE | 2021-11-26 23:28 | Operative Report (OR) ---
DATE OF SERVICE: 11/25/2021 PREOPERATIVE DIAGNOSES: 1. History of recurrent epistaxis. 2. Uncontrolled posterior nasal epistaxis. POSTOPERATIVE DIAGNOSES: 1. History of recurrent epistaxis. 2. Uncontrolled posterior nasal epistaxis. PROCEDURE: Bilateral nasal endoscopy with control of epistaxis. SURGEON: Ze Queen MD, FACS. ANESTHESIOLOGIST: Delgado Stephen DO, supervising anesthesiologist. ANESTHESIA TYPE: General, with jeffrey-tracheal intubation. DESCRIPTION OF PROCEDURE: The patient was brought to the operating room. The patient identification, correct site, and surgical safety timeout checklist was completed with the entire operating team; with all in agreement, general anesthesia was then induced. After rapid sequence and orotracheal intubation, the patient's airway was secured and the endotracheal tube was secured to the left oral commissure and lower face with tape. The patient remained in supine position and then the sterile prep of the upper lip and nose followed by sterile draping was then applied and then the right nasal endoscopy was performed first, noting that there is coagulated blood in the right nasal airway with active bleeding and also then examined the left, there was coagulated blood with active bleeding on the left nasal airway. Cottonoids with Afrin solution were then gently placed bilaterally for 2 minutes and then removed to allow for some vasoconstriction and decongestion. Clearing then the right nasal airway of all clots and secretions, there is a slight deviation of the septum towards the right with a small spur and then there is active bleeding at the point of the spur as it impinged on the right inferior turbinate. This was then cauterized using suction cautery set at a power level of 20 and this helped to control the bleeding on the right side. Further suctioning posteriorly noted to have normal middle turbinate and a semilunar hiatus back to the nasopharynx. There does not appear to be any further active bleeding on the right side with this endoscopic control. A Gelfoam lightly coated with mupirocin ointment was then placed as a wedge between the septal spurring of the right inferior turbinate to help tamponade the area further and this was followed then with application of Fabienne powder and FloSeal around the Gelfoam to have a hemostatic agent around the surface of that right active nasal bleeding. Bleeding was now controlled. Then, attention placed to the left nasal airway. The temporary packing of the cottonoids with Afrin solution were then removed and then all clots and secretions suctioned clear. There were 2 arterial bleeds noted at the mid septal wall and these were then spot controlled with suction cautery under endoscopic guidance. This slowed down the bleeding further, and then on further inspection, there is blood that was collected into the maxillary sinus, which had a wide antrotomy from previous endoscopic sinus surgery as well as open ethmoid sinuses' cavities as well. All the blood clots and secretions were suctioned clear. A small amount of bleeding was coming from the middle turbinate of what was left of its remnants and this was able then to be slowed by first placing the Fabienne powder and then followed by Gelfoam lightly coated with mupirocin ointment and then endoscopically guided to be packed up into the upper vault of the ____ nasal cavity. This helped to reduce the bleeding and then followed by FloSeal application around the left maxillary enterotomy opening as well as the middle turbinate. Then, this was followed by placing a Rhino Rocket packing with the pull string along the floor of the nasal vault and allowed to expand, which helped to tamponade and then control the bleeding on the left side. Inspection then of the oral cavity and nasopharynx noted to have excellent hemostatic control with cautery and packing that were placed bilaterally. The oral cavity was suctioned clear of all clots and secretions and then the [place] sump nasogastric tube was passed through the oral cavity directed down the esophageal lumen to the gastric cavity, which was then evacuated of old blood as well. This was then removed and then the patient was then reversed from anesthesia. ESTIMATED BLOOD LOSS: 90 mL. FLUID INFUSED: 800 mL of lactated Ringer's. FINDINGS: Bilateral active nasal bleeding with: 1. Left arterial bleeding from 2 separate sites of the mid septal wall. 2. Right inferior turbinate bleeding at the apex of the septal spur. 3. Evidence of past left endoscopic sinus surgery with widening of the left maxillary and left anterior and posterior ethmoid cavities. 4. Evidence of past cleft lip and palate repairs. COMPLICATIONS: None. PACKS: Gelfoam with Fabienne powder and FloSeal bilaterally and a LEFT Rhino Rocket packing. DRAINS: None. CULTURES: None. PATHOLOGY: No specimens. CONDITION: The patient tolerated the procedure well under general orotracheal anesthesia. She was reversed from anesthesia, extubated in the operating room, transferred to the hospital bed and then taken to the postanesthesia care unit in stable condition. Job ID: [id number] MANN
--- NOTE | 2021-11-27 05:08 | Discharge Summary (DS) ---
DATE OF DISCHARGE: 11/26/2021. ADMITTING DIAGNOSES: 1. Uncontrolled epistaxis. 2. Recurrent epistaxis. DISCHARGE DIAGNOSES: 1. Uncontrolled epistaxis. 2. Recurrent epistaxis. PRINCIPAL PROCEDURE: Bilateral nasal endoscopy with control of epistaxis. HOSPITAL COURSE: The patient was seen in the emergency room on 11/25/2021 with uncontrolled epistaxi s that began after an episode of nasal clearing at home. The patient was triaged in the Emergency De partment with clamping and Afrin spray protocols given to help control the epistaxis that was noted t o be uncontrolled and the patient continued to bleed. Otolaryngology consultation was obtained. The patient was seen and examined and determined in order to control the bleeding since she was anticoag ulated on Xarelto for history of atrial fibrillation, that this would be best done endoscopically in the operating room. The patient was then admitted to the hospital and then taken to the operating ro om, where the above noted procedure was accomplished. Excellent hemostatic control was then obtained through the nasal endoscopy and control of epistaxis. The patient was then observed overnight in [facility] with this bilateral nasal packing and also given facial mask oxygenation with 35% humidifi ed oxygen face mask, since she was bilaterally packed at that time. The right nasal packing was diss olvable and that improved, so the patient was able to by morning breathe through her right nasal airw ay. The left nasal airway continued to be completely packed with the Rhino Rocket packing in place w ith the Gelfoam, FloSeal, and Fabienne powder. The patient was able then to tolerate an oral diet and then she was discharged to home. Plan then was to have the patient resume all her usual home medicat ions with the exception of Xarelto to be held until her left nasal packing was removed in the clinic. Significant finding of her hematocrit had dropped from 44% to 34%. She was given ferrous sulfate 3 25 mg tablets to take 1 a day for 30 days. Plan then was to have the patient seen in my clinic at [facility] at 8:30 a.m. on 11/29/2021. Job ID: [id number]
== END 2021-11-26 13:54 | disposition home or self-care (01) ==
LOC: ED 10:48 → ASU 15:21 → 3W 15:21